=== PATIENT | female | born 1985 | race African-American/Black ===

== ENCOUNTER 2016-08-15 12:54 | Emergency (ER) | payer OTHER ==
[~2016-08-15] VITALS: Ht 157.5 cm; Wt 68.0 kg
[~2016-08-15 12:54] MED LIST: CIPR500T4 PO; HC30CR25 TOP; HYDR-3498 PO; IBUP-1542 PO; NITR-58 PO; POLY17PO6 PO
[2016-08-15 13:04] VITALS: Ht 157.5 cm; Wt 68.0 kg
[2016-08-15] MEDS ORDERED: CEPH-443 PO (15:40)
[2016-08-15] MEDS ORDERED: IBUP-1542 PO (15:40)
[2016-08-15] MEDS ORDERED: IBUPROFEN 600 MG TAB PO ONE (16:00)
[2016-08-15 16:16] VITALS: BP 127/76; PULSE 90; RESP 18; TEMP 98.1
--- NOTE | 2016-08-15 17:28 | ERD ---
ER Documentation Chief Complaint Date/Time DATE: 08/15/16 TIME: 17:22 Chief Complaint LEFT MIDDLE FINGER REDDNESS ABRASION HPI 31-year-old female patient with no significant past medical history presents the ED complaining of a left middle finger pain and swelling near the base of the nailbed that started 3 days ago. States that she tried to get the pus out of her skin near the nail bed but was unsuccessful and slightly peeled some skin off. Denies any injuries or trauma. Denies any fever, chills, weakness, numbness or tingling, loss of sensation, loss of range of motion. ROS All systems reviewed and are negative except as per history of present illness. Medications Home Meds Active Scripts Cephalexin* (Keflex*) 500 Mg Capsule, 500 MG PO QID for 7 Days, CAP Prov:ELDER CHESTER PA-C 08/15/16 Ibuprofen* (Motrin*) 600 Mg Tab, 600 MG PO Q6, #30 TAB Prov:ELDER CHESTER PA-C 08/15/16 Hydrocodone Bit-Acetaminophen* ([place]*) 5-325 Mg Tab, 1 TAB PO Q6 Y for PAIN, # 7 TAB Prov:ELDER CHESTER PA-C 16 Hydrocortisone* Topical (Hydrocortisone* Topical) 2.5%-28.3 Gm Cream..g., 1 APPLIC TOP BID, #1 TUB Prov:ANTONIO NUNES PA-C 01/25/15 Hydrocodone Bit-Acetaminophen* ([place]*) 5-325 Mg Tab, 1 TAB PO Q6 Y for PAIN, # 7 TAB Prov:ALANIS DOBBS MD 10/03/14 Ciprofloxacin Hcl* (Ciprofloxacin Hcl*) 500 Mg Tablet, 500 MG PO BID for 7 Days , TAB Prov:ALANIS DOBBS MD 10/03/14 Nitrofurantoin Monohyd Macrocr* (Macrobid*) 100 Mg Capsr, 100 MG PO BID for 5 Days, CAP Prov:MAR STERN 09/18/14 Polyethylene Glycol* (Miralax*) 17 Gm Powd.pack, 17 GM PO DAILY, #7 Prov:MAR STERN 09/18/14 Ibuprofen* (Motrin*) 600 Mg Tab, 600 MG PO Q8, #30 Prov:MAR STERN 09/18/14 Allergies Allergies: Coded Allergies: No Known Drug Allergy (Verified Allergy, Mild, 09/17/15) PMhx/Soc History of Surgery: No Anesthesia Reaction: No Hx Neurological Disorder: No Hx Respiratory Disorders: No Hx Cardiac Disorders: No Hx Psychiatric Problems: No Hx Miscellaneous Medical Probl: No Hx Alcohol Use: No Hx Substance Use: No Hx Tobacco Use: No Physical Exam Vitals Vital Signs Date Time Temp Pulse Resp B/P Pulse Ox O2 Delivery O2 Flow Rate FiO2 08/15/16 16:16 98.1 90 18 127/76 99 Room Air 08/15/16 13:04 98.0 100 20 120/84 100 Physical Exam Const: [id number], well-nourished. In no acute distress. Head: Atraumatic, normocephalic Eyes: Normal Conjunctiva without injection ENT: Normal external ear, nose and mouth. Neck: Full range of motion. No meningismus. Resp: Clear to auscultation bilaterally. No wheezing, rhonchi, rales, or crackles. No accessory muscle use. No retractions. Cardio: Regular rate and rhythm, no murmurs Skin: No petechiae or rashes Back: No midline tenderness. No CVA tenderness. Ext: No cyanosis, or edema. Cap refill less than 2 seconds. Distal pulses intact bilaterally. Erythema and edema noted at the base of the nail-bed of left middle finger with no purulent discharge noted. Full range of motion of DIP, PIP, MCP joints of bilateral hands and wrists. Neur: Awake and alert. Normal gait and coordination. Muscle strength 5/5. Sensation intact bilaterally. Psych: Normal Mood and Affect Results 24 hrs Current Medications Medications (Trade) Dose Ordered Sig/Yaw Route PRN Reason Start Time Stop Time Status Last Admin Dose Admin Ibuprofen (Motrin) 600 mg ONCE ONCE PO 08/15/16 16:00 08/15/16 16:01 DC 08/15/16 15:52 Procedures/MDM This is a 31-year-old female patient with no significant past medical history presents to the ED complaining of a left middle finger redness. Patient is afebrile and nontoxic-appearing. Patient has normal vital signs. Patient gave consent to drain the paronychia at this time. Bright red blood and discharge was noted at the paronychia site of the left middle finger. Patient was given ibuprofen here in the ED with improvement of her pain. Patient was instructed to continue applying warm compresses. Low suspicion for scabies, SJS/TEN, erythema multiforme, sepsis, cellulitis, necrotizing fascitis, gangrene, meningococcemia or other emergent conditions. No evidence of fractures, dislocations, compartment syndrome, neurologic injury, vascular injury, open joint, open fracture, tendon laceration, septic arthritis, osteomyelitis, DVT, foreign body, or other emergent conditions. Discharge medications: Ibuprofen, Keflex Follow up with primary care physician in 1-2 days. Instructed patient to return to the ED sooner for any worsening symptoms. Patient's questions were answered. Patient understood and agreed with discharge plan. Patient discharged stable. Departure Diagnosis: Primary Impression: Paronychia Laterality: left Qualified Code: L03.012 - Paronychia, left Condition: Stable Patient Instructions: Paronychia Referrals: [facility] YOU HAVE RECEIVED A MEDICAL SCREENING EXAM AND THE RESULTS INDICATE THAT YOU DO NOT HAVE A CONDITION THAT REQUIRES URGENT TREATMENT IN THE EMERGENCY DEPARTMENT. FURTHER EVALUATION AND TREATMENT OF YOUR CONDITION CAN WAIT UNTIL YOU ARE SEEN IN YOUR DOCTORS OFFICE WITHIN THE NEXT 1-2 DAYS. IT IS YOUR RESPONSIBILITY TO MAKE AN APPOINTMENT FOR FOLOW-UP CARE. IF YOU HAVE A PRIMARY DOCTOR --you should call your primary doctor and schedule an appointment IF YOU DO NOT HAVE A PRIMARY DOCTOR YOU CAN CALL OUR PHYSICIAN REFERRAL HOTLINE AT IF YOU CAN NOT AFFORD TO SEE A PHYSICIAN YOU CAN CHOSE FROM THE FOLLOWING [facility] [address] [facility]. [facility] [address] [facility]. [facility] [address] [facility]. [facility] [address] [facility] [address] [facility]. [facility]. [address] [facility]. [facility] YOU HAVE RECEIVED A MEDICAL SCREENING EXAM AND THE RESULTS INDICATE THAT YOU DO NOT HAVE A CONDITION THAT REQUIRES URGENT TREATMENT IN THE EMERGENCY DEPARTMENT. FURTHER EVALUATION AND TREATMENT OF YOUR CONDITION CAN WAIT UNTIL YOU ARE SEEN IN YOUR DOCTORS OFFICE WITHIN THE NEXT 1-2 DAYS. IT IS YOUR RESPONSIBILITY TO MAKE AN APPOINTMENT FOR FOLOW-UP CARE. IF YOU HAVE A PRIMARY DOCTOR --you should call your primary doctor and schedule and appointment IF YOU DO NOT HAVE A PRIMARY DOCTOR YOU CAN CALL OUR PHYSICIAN REFERRAL HOTLINE AT . IF YOU CAN NOT AFFORD TO SEE A PHYSICIAN YOU CAN CHOSE FROM THE FOLLOWING [facility] INSTITUTIONS: [facility] [id number] [place] [address] [facility] [address] [place], [place] [id number] [place] [address] [address] [place] [address] [facility] URGENT CARE/SPECIALTIES Additional Instructions: Follow up in 2 days in your clinic for wound check. Call your primary care doctor TOMORROW for an appointment during the next 2 days.See the doctor sooner or return here if your condition worsens before your appointment time. ELDER CHESTER PA-C August 15, 2016 17:27
== END 2016-08-15 16:17 | disposition home or self-care (01) ==
LOC: FTE 12:54
DX: L03.012 Cellulitis of left finger (principal)
CPT/HCPCS: Z7502; Z7610; 99283